=== PATIENT | male | born 1995 | race Caucasian/White ===

== ENCOUNTER 2019-06-29 10:23 | Emergency (ER) | payer MEDICAID ==
[~2019-06-29] VITALS: Ht 167.6 cm; Wt 83.9 kg
[2019-06-29 10:27] VITALS: BP 174/113
[2019-06-29 11:26] VITALS: BP 135/83
== END 2019-06-29 11:27 | disposition home or self-care (01) ==
LOC: MED 10:23
DX: K62.5 Hemorrhage of anus and rectum (principal); F12.90 Cannabis use, unspecified, uncomplicated; I10 Essential (primary) hypertension; Z98.890 Other specified postprocedural states
CPT/HCPCS: 99282

== ENCOUNTER 2020-01-10 19:36 | Emergency (ER) | payer MEDICAID ==
[~2020-01-10] VITALS: Ht 167.6 cm; Wt 79.4 kg
[2020-01-10 19:40] VITALS: BP 135/100
--- NOTE | 2020-01-10 19:43 | NUR ---
TO LOBBY A/W BED AMBULATORY
--- NOTE | 2020-01-10 19:45 | NUR ---
TO CHAIR A AMBULATORY
--- NOTE | 2020-01-10 19:52 | NUR ---
SEEN AND EXAMINED BY PA WITH ORDERS AND CARRIED OUT.
[2020-01-10] MEDS ORDERED: ONDANSETRON 4 MG TAB PO ONE (19:55)
[2020-01-10] MEDS ORDERED: ONDANSETRON 4 MG ODT PO ONE (19:55)
[2020-01-10] MEDS ORDERED: KETOROLAC 30 MG/ML VIAL IM ONE (19:55)
--- NOTE | 2020-01-10 19:57 | NUR ---
URINE SPECIMEN SENT TO LAB.
--- NOTE | 2020-01-10 20:10 | NUR ---
MEDICATED PER [facility] ORDER, PATIENT TOLERATED WELL.
[2020-01-10 20:34] VITALS: BP 135/100
--- NOTE | 2020-01-10 20:34 | NUR ---
Patient discharged with v/s stable. Written and verbal after care instructions given and explained. Patient verbalized understanding. Ambulatory with steady gait. All questions addressed prior to discharge. Advised to follow up with PMD.
[2020-01-10 21:20] LABS: BARBITURATE, URINE NEGATIVE ng/ml (NEG <=200); BENZODIAZEPINE, URINE NEGATIVE ng/mL (NEG <=200); CANNABINOID, URINE POSITIVE ng/mL (NEG <=50); COCAINE, URINE POSITIVE ng/mL (NEG <=300); OPIATE, URINE NEGATIVE ng/mL (NEG <=2000); PHENCYCLIDINE SCREEN,URINE NEGATIVE ng/mL (NEG <=25)
== END 2020-01-10 20:34 | disposition home or self-care (01) ==
LOC: MED 19:36
DX: F19.90 Other psychoactive substance use, unspecified, uncomplicated (principal); F12.90 Cannabis use, unspecified, uncomplicated; F14.90 Cocaine use, unspecified, uncomplicated; Z90.49 Acquired absence of other specified parts of digestive tract
CPT/HCPCS: 80305; 81002; 93005; 96372; 99284; J1885; Q0162

== ENCOUNTER 2021-06-20 06:19 | Emergency (ER) | payer SELFPAY ==
[~2021-06-20] VITALS: Ht 167.6 cm; Wt 85.3 kg
[2021-06-20 06:25] VITALS: BP 160/97
--- NOTE | 2021-06-20 06:30 | NUR ---
PT TAKEN TO BED 2
--- NOTE | 2021-06-20 06:34 | NUR ---
26 YO/M PRESENTS TO ED W C/O TONGUE SWELLING W PAIN 10/10 BURNING CONSTANT, AND A WHITE SMALL BUMP UNDER TONGUE, + BREAK OUT OF PIMPLE/RASH TO RACE AND HEAD X3 DAYS S/P "GIVING ORAL SEX TO A FEMALE PARTNER. DENIES PARTNER HAVING ANY KNOWN STDs. 1MM WHITE BUMP NOTED UNDER TONGUE, NO TONGUE SWELLING NOTED, SMALL BUMP TO LIP AND REDNESS TO HEAD NOTED. PT DENIES ANY FEVERS, CHILLS, N/V/D OR SOB. BREATHING EVEN AND UNLABORED. PMH: DENIES ALLRGIES: DENIES
--- NOTE | 2021-06-20 06:40 | NUR ---
Dr. Patel examining patient.
[2021-06-20] MEDS ORDERED: ACYC400T14 PO (06:58)
[2021-06-20] MEDS ORDERED: LIDO15SO PO (06:58)
[2021-06-20] MEDS ORDERED: NAPR-54 PO (06:58)
[2021-06-20 07:04] VITALS: BP 160/97
--- NOTE | 2021-06-20 07:04 | NUR ---
Patient discharged with v/s stable. Written and verbal after care instructions given and explained. Patient alert, oriented and verbalized understanding of instructions. Ambulatory with steady gait. All questions addressed prior to discharge. ID band removed. Patient advised to follow up with PMD. Rx of ACYCLOVIR, LIDOCAINE, NAPROXEN given. Patient educated on indication of medication including possible reaction and side effects. Opportunity to ask questions provided and answered.
== END 2021-06-20 07:04 | disposition home or self-care (01) ==
LOC: MED 06:19
DX: K13.79 Other lesions of oral mucosa (principal); F12.90 Cannabis use, unspecified, uncomplicated; Z90.49 Acquired absence of other specified parts of digestive tract; Z98.890 Other specified postprocedural states
CPT/HCPCS: 99283